=== PATIENT | female | born 2000 | race Hispanic/Latino ===

== ENCOUNTER 2021-02-25 04:30 | Emergency (ER) | payer OTHER ==
[2021-02-25 05:23] LABS: BASOPHILS % (AUTO) 0.4 % (0.0-5.0); EOSINOPHILS % (AUTO) 1.2 % (0.0-8.0); HEMATOCRIT 42.3 % (36-48); LYMPHOCYTES % (AUTO) 22.3 % (21.0-51.0); MEAN CORPUSCULAR HEMOGLOBIN 24.1 pg (27.0-33.0); MEAN CORPUSCULAR HGB CONC 31.7 g/dL (32.0-36.0); MEAN CORPUSCULAR VOLUME 75.9 fL (80-100); MONOCYTES % (AUTO) 5.6 % (3.0-13.0); NEUTROPHILS % (AUTO) 69.8 % (40.0-77.0); PLATELET COUNT (AUTO) 466 K/uL (130-400); RED BLOOD CELL COUNT(AUTO) 5.57 MIL/uL (4.00-5.50); WHITE BLOOD COUNT (AUTO) 20.3 K/uL (4.8-10.8)
[2021-02-25 05:25] LABS: BILIRUBIN,URINE Negative (NEGATIVE); COLOR,URINE Orange (YELLOW); GLUCOSE, URINE (UA) >=1000 mg/dL (NEGATIVE); KETONES,URINE Trace mg/dL (NEGATIVE); LEUKOCYTE ESTERASE ,URINE Negative (NEGATIVE); NITRATE,URINE Negative (NEGATIVE); OCCULT BLOOD,URINE Large (NEGATIVE); PROTEIN,URINE Negative (NEGATIVE); UROBILINOGEN,URINE 0.2 mg/dL (0.2-1.0)
[2021-02-25 05:26] LABS: APPEARANCE,URINE CLOUDY (CLEAR)
[2021-02-25 05:27] LABS: HCG,QUAL RESULT NEGATIVE (NEGATIVE)
[2021-02-25 05:34] LABS: BACTERIA,URINE None Seen /HPF (None Seen); RBC,URINE TNTC /HPF (0-1)
== END 2021-02-25 05:48 | disposition home or self-care (01) ==
LOC: EDH 04:30
DX: N93.9 Abnormal uterine and vaginal bleeding, unspecified (principal); E11.9 Type 2 diabetes mellitus without complications; Z90.49 Acquired absence of other specified parts of digestive tract; Z79.899 Other long term (current) drug therapy
CPT/HCPCS: 36415; 81001; 81025; 84702; 85025; 86850; 86900; 86901

== ENCOUNTER → 2021-04-04 | Outpatient (CLI) | payer OTHER ==
[2021-04-04 11:52] LABS: ABG BASE EXCESS -1.1 mmol/L (-2.0-3.0); ABG HCO3 24.3 mmol/L (21.0-28.0); ABG OXYGEN SATURATION 96.3 % (95.0-99.0); ABG PCO2 43 mmHg (32-45)
[2021-04-04 11:53] LABS: BASOPHILS % (AUTO) 0.7 % (0.0-5.0); EOSINOPHILS % (AUTO) 1.2 % (0.0-8.0); HEMATOCRIT 47.8 % (36-48); LYMPHOCYTES % (AUTO) 32.9 % (21.0-51.0); MEAN CORPUSCULAR HEMOGLOBIN 23.6 pg (27.0-33.0); MEAN CORPUSCULAR VOLUME 76.2 fL (80-100); NEUTROPHILS % (AUTO) 60.2 % (40.0-77.0); PLATELET COUNT (AUTO) 459 K/uL (130-400); RED BLOOD CELL COUNT(AUTO) 6.27 MIL/uL (4.00-5.50); RED CELL DISTRIBUTION WIDTH 16.6 % (11.0-15.5); WHITE BLOOD COUNT (AUTO) 17.6 K/uL (4.8-10.8)
[2021-04-04 12:09] LABS: % IRON SATURATION 7.1 % (22-44)
== END | disposition home or self-care (01) ==
LOC: LAB 10:12
PROVIDERS: ATTEND Internal Medicine Hematology & Oncology
DX: D45 Polycythemia vera (principal)
CPT/HCPCS: 36415; 71046; 81206; 82668; 82728; 82803; 83540; 83550; 85025

== ENCOUNTER → 2021-06-06 | Outpatient (CLI) | payer OTHER ==
[2021-06-06 11:19] LABS: BASOPHILS % (AUTO) 0.5 % (0.0-5.0); EOSINOPHILS % (AUTO) 1.3 % (0.0-8.0); HEMATOCRIT 44.8 % (36-48); LYMPHOCYTES % (AUTO) 29.6 % (21.0-51.0); MEAN CORPUSCULAR HEMOGLOBIN 25.3 pg (27.0-33.0); MEAN CORPUSCULAR HGB CONC 31.5 g/dL (32.0-36.0); MEAN CORPUSCULAR VOLUME 80.4 fL (80-100); MONOCYTES % (AUTO) 4.4 % (3.0-13.0); NEUTROPHILS % (AUTO) 63.7 % (40.0-77.0); PLATELET COUNT (AUTO) 346 K/uL (130-400); RED BLOOD CELL COUNT(AUTO) 5.57 MIL/uL (4.00-5.50); RED CELL DISTRIBUTION WIDTH 18.7 % (11.0-15.5); WHITE BLOOD COUNT (AUTO) 12.9 K/uL (4.8-10.8)
[2021-06-06 11:30] LABS: ALBUMIN 3.3 g/dL (3.5-5.0); BILIRUBIN,TOTAL 0.2 mg/dL (0.2-1.0); CREATININE 0.7 mg/dL (0.5-1.5); TOTAL PROTEIN, SERUM 7.9 g/dL (6.0-8.3)
== END | disposition home or self-care (01) ==
LOC: LAB 10:06
PROVIDERS: ATTEND Internal Medicine Hematology & Oncology
DX: D50.0 Iron deficiency anemia secondary to blood loss (chronic) (principal)
CPT/HCPCS: 36415; 80053; 83540; 85025

== ENCOUNTER 2021-08-18 17:15 | Emergency (ER) | payer OTHER ==
[~2021-08-18] VITALS: Ht 152.4 cm; Wt 109.8 kg
[2021-08-18 17:39] LABS: BASOPHILS % (AUTO) 0.6 % (0.0-5.0); EOSINOPHILS % (AUTO) 1.6 % (0.0-8.0); HEMATOCRIT 44.3 % (36-48); LYMPHOCYTES % (AUTO) 25.1 % (21.0-51.0); MEAN CORPUSCULAR HEMOGLOBIN 26.6 pg (27.0-33.0); MEAN CORPUSCULAR HGB CONC 32.1 g/dL (32.0-36.0); MEAN CORPUSCULAR VOLUME 83.1 fL (80-100); MONOCYTES % (AUTO) 5.8 % (3.0-13.0); NEUTROPHILS % (AUTO) 66.1 % (40.0-77.0); PLATELET COUNT (AUTO) 346 K/uL (130-400); RED BLOOD CELL COUNT(AUTO) 5.33 MIL/uL (4.00-5.50); RED CELL DISTRIBUTION WIDTH 13.1 % (11.0-15.5); WHITE BLOOD COUNT (AUTO) 15.4 K/uL (4.8-10.8)
[2021-08-18 17:51] LABS: CREATININE 0.5 mg/dL (0.5-1.5); POTASSIUM 3.9 mmol/L (3.5-5.1)
[2021-08-18 17:56] LABS: ALBUMIN 3.5 g/dL (3.5-5.0); BILIRUBIN,TOTAL 0.2 mg/dL (0.2-1.0); TOTAL PROTEIN, SERUM 8.2 g/dL (6.0-8.3)
[2021-08-18 18:11] LABS: B-TYPE NATRIURETIC PEPTIDE 6 pg/mL (0-100)
[2021-08-18] MEDS ORDERED: CEFTRIAXONE 1G VIAL ONE (21:17)
[2021-08-18] MEDS ORDERED: CEFU500T67 PO (21:18)
[2021-08-18 21:33] VITALS: BP 134/69
[2021-08-18 21:41] LABS: CRP QUANTITATIVE 33.6 mg/L (0.00-9.0); MAGNESIUM 2.3 mg/dL (1.80-2.40)
== END 2021-08-18 21:35 | disposition home or self-care (01) ==
LOC: EDH 17:15
DX: N39.0 Urinary tract infection, site not specified (principal); R07.89 Other chest pain; R19.7 Diarrhea, unspecified; E11.9 Type 2 diabetes mellitus without complications; M19.90 Unspecified osteoarthritis, unspecified site; E66.01 Morbid (severe) obesity due to excess calories; Z79.4 Long term (current) use of insulin; Z90.49 Acquired absence of other specified parts of digestive tract; Z68.42 Body mass index [BMI] 45.0-49.9, adult
CPT/HCPCS: 36415; 71045; 80053; 82550; 83690; 83735; 83880; 84484; 85025; 86140; 87040 ×2; 93005; 96374; 99285; J0696

== ENCOUNTER 2021-09-07 19:22 | Emergency (ER) | payer OTHER ==
[~2021-09-07] VITALS: Ht 152.4 cm; Wt 108.9 kg
[~2021-09-07 19:22] MED LIST: CEFU500T67 PO
[2021-09-07] MEDS ORDERED: KETOROLAC 30MG VIAL (30MG/ML) IM SCH (20:00)
[2021-09-07 20:29] LABS: BASOPHILS % (AUTO) 0.6 % (0.0-5.0); EOSINOPHILS % (AUTO) 0.4 % (0.0-8.0); HEMATOCRIT 43.9 % (36-48); LYMPHOCYTES % (AUTO) 22.1 % (21.0-51.0); MEAN CORPUSCULAR HEMOGLOBIN 26.9 pg (27.0-33.0); MEAN CORPUSCULAR HGB CONC 33.3 g/dL (32.0-36.0); MONOCYTES % (AUTO) 5.3 % (3.0-13.0); NEUTROPHILS % (AUTO) 71.1 % (40.0-77.0); PLATELET COUNT (AUTO) 394 K/uL (130-400); RED BLOOD CELL COUNT(AUTO) 5.42 MIL/uL (4.00-5.50); RED CELL DISTRIBUTION WIDTH 12.6 % (11.0-15.5)
[2021-09-07] MEDS ORDERED: ZOSYN 3.375GM+NS 50ML 50 ML IV SCH (20:34)
[2021-09-07 20:36] LABS: CREATININE 0.6 mg/dL (0.5-1.5)
[2021-09-07 20:40] LABS: ALBUMIN 3.8 g/dL (3.5-5.0); BILIRUBIN,TOTAL 0.4 mg/dL (0.2-1.0); TOTAL PROTEIN, SERUM 8.9 g/dL (6.0-8.3)
[2021-09-07] MEDS ORDERED: 0.9%NACL 1000ML 1,365 ML IV SCH (21:00)
[2021-09-07] MEDS ORDERED: LORAZEPAM 2 MG/ML 1 ML VIAL IVP SCH (21:00)
[2021-09-07] MEDS ORDERED: TETANUS/DIPHTHERIA TOXOID [ADULT] 0.5 ML VIAL IM SCH (21:00)
[2021-09-07] MEDS ORDERED: ACETAMINOPHEN 500 MG TABLET PO SCH (21:00)
[2021-09-07 21:49] LABS: APPEARANCE,URINE Clear (CLEAR); BILIRUBIN,URINE Negative (NEGATIVE); COLOR,URINE Yellow (YELLOW); GLUCOSE, URINE (UA) >=1000 mg/dL (NEGATIVE); KETONES,URINE >=160 mg/dL (NEGATIVE); LEUKOCYTE ESTERASE ,URINE Negative (NEGATIVE); NITRATE,URINE Negative (NEGATIVE); OCCULT BLOOD,URINE Negative (NEGATIVE); PROTEIN,URINE Trace mg/dL (NEGATIVE)
[2021-09-07 21:51] LABS: HCG,QUAL RESULT NEGATIVE (NEGATIVE)
[2021-09-07 21:55] LABS: BACTERIA,URINE Few /HPF (None Seen); RBC,URINE 0-1 /HPF (0-1)
[2021-09-07 21:56] LABS: MUCUS,URINE Rare LPF (None Seen); SQUAMOUS EPITHELIAL CELL,UR Moderate /HPF (0-2)
[2021-09-07 21:57] LABS: AMPHET/METH SCREEN,URINE POSITIVE (NEGATIVE); BARBITURATE SCREEN, URINE NEGATIVE (NEGATIVE); BENZODIAZEPINES SCREEN,URINE NEGATIVE (NEGATIVE); CANNABINOID SCREEN,URINE NEGATIVE (NEGATIVE); COCAINE SCREEN,URINE NEGATIVE (NEGATIVE); OPIATE SCREEN,URINE NEGATIVE (NEGATIVE); PHENCYCLIDINE SCREEN,URINE NEGATIVE (NEGATIVE)
[2021-09-07] MEDS ORDERED: CEPH500B PO (23:19)
[2021-09-07] MEDS ORDERED: IBUP-2070 PO (23:19)
[2021-09-07] MEDS ORDERED: CYCL5TAB PO (23:19)
[2021-09-07] MEDS ORDERED: ACET-3194 PO (23:19)
[2021-09-07 23:59] VITALS: BP 111/66
[2021-09-09 08:14] LABS: HEPATITIS Bs ANTIGEN SCREEN P Negative (Negative)
== END 2021-09-08 00:11 | disposition home or self-care (01) ==
LOC: EDH 19:22
DX: S61.031A Puncture wound without foreign body of right thumb without damage to nail, initial encounter (principal); E86.0 Dehydration; D72.829 Elevated white blood cell count, unspecified; Z77.21 Contact with and (suspected) exposure to potentially hazardous body fluids; R50.9 Fever, unspecified; M79.10 Myalgia, unspecified site; Z20.822 Contact with and (suspected) exposure to COVID-19; E11.9 Type 2 diabetes mellitus without complications; M19.90 Unspecified osteoarthritis, unspecified site; Z79.1 Long term (current) use of non-steroidal anti-inflammatories (NSAID); Z79.899 Other long term (current) drug therapy; Z90.49 Acquired absence of other specified parts of digestive tract; X58.XXXA Exposure to other specified factors, initial encounter; Y93.89 Activity, other specified; Y92.89 Other specified places as the place of occurrence of the external cause; Y99.8 Other external cause status
CPT/HCPCS: 36415; 71045; 80053; 80305; 81001; 81025; 82550; 83605; 84145; 84484; 85025; 86701; 86704; 86706; 86804; 87040 ×2; 87088; 87340; 87390; 87522; 87635; 87804 ×2; 87880; 90471; 90714; 96365; 96372; 96375; 99284; C9803; J1885; J2060; J2543

== ENCOUNTER 2021-09-09 19:42 | Observation (INO) | payer BC, OTHER ==
[~2021-09-09] VITALS: Ht 152.4 cm; Wt 108.2 kg
[~2021-09-09 19:42] MED LIST changes: +ACET-3194 PO; +CEPH500B PO; +CYCL5TAB PO; +IBUP-2070 PO
[2021-09-09 20:22] LABS: APPEARANCE,URINE Cloudy (CLEAR); BILIRUBIN,URINE Negative (NEGATIVE); COLOR,URINE Yellow (YELLOW); GLUCOSE, URINE (UA) >=1000 mg/dL (NEGATIVE); KETONES,URINE Negative (NEGATIVE); LEUKOCYTE ESTERASE ,URINE Negative (NEGATIVE); NITRATE,URINE Negative (NEGATIVE); OCCULT BLOOD,URINE Negative (NEGATIVE); PROTEIN,URINE Negative (NEGATIVE); UROBILINOGEN,URINE 0.2 mg/dL (0.2-1.0)
[2021-09-09 20:29] LABS: BACTERIA,URINE Rare /HPF (None Seen); MUCUS,URINE Few LPF (None Seen); SQUAMOUS EPITHELIAL CELL,UR Few /HPF (0-2); YEAST,URINE BUDDING Moderate /HPF (None Seen)
[2021-09-09 20:30] LABS: AMPHET/METH SCREEN,URINE NEGATIVE (NEGATIVE); BARBITURATE SCREEN, URINE NEGATIVE (NEGATIVE); BENZODIAZEPINES SCREEN,URINE NEGATIVE (NEGATIVE); CANNABINOID SCREEN,URINE NEGATIVE (NEGATIVE); COCAINE SCREEN,URINE NEGATIVE (NEGATIVE); OPIATE SCREEN,URINE POSITIVE (NEGATIVE); PHENCYCLIDINE SCREEN,URINE NEGATIVE (NEGATIVE)
[2021-09-09] MEDS ORDERED: 0.9%NACL 1000ML 1,000 ML IV ONE (20:30)
[2021-09-09] MEDS ORDERED: LORAZEPAM 2 MG/ML 1 ML VIAL IVP ONE (20:30)
[2021-09-09] MEDS ORDERED: KETOROLAC 30MG VIAL (30MG/ML) IV ONE (20:30)
[2021-09-09 20:38] LABS: HCG,QUAL RESULT NEGATIVE (NEGATIVE)
[2021-09-09] MEDS ORDERED: KETOROLAC 30MG VIAL (30MG/ML) ONE (20:42)
[2021-09-09] MEDS ORDERED: LORAZEPAM 2 MG/ML 1 ML VIAL ONE (20:42)
[2021-09-09 20:54] LABS: BASOPHILS % (AUTO) 0.4 % (0.0-5.0); EOSINOPHILS % (AUTO) 0.4 % (0.0-8.0); HEMATOCRIT 38.2 % (36-48); LYMPHOCYTES % (AUTO) 26.1 % (21.0-51.0); MEAN CORPUSCULAR HEMOGLOBIN 27.2 pg (27.0-33.0); MEAN CORPUSCULAR HGB CONC 32.5 g/dL (32.0-36.0); MEAN CORPUSCULAR VOLUME 83.8 fL (80-100); MONOCYTES % (AUTO) 5.2 % (3.0-13.0); NEUTROPHILS % (AUTO) 67.3 % (40.0-77.0); PLATELET COUNT (AUTO) 331 K/uL (130-400); RED BLOOD CELL COUNT(AUTO) 4.56 MIL/uL (4.00-5.50); RED CELL DISTRIBUTION WIDTH 12.9 % (11.0-15.5); WHITE BLOOD COUNT (AUTO) 18.4 K/uL (4.8-10.8)
[2021-09-09 21:11] LABS: CREATININE 0.6 mg/dL (0.5-1.5); POTASSIUM 4.2 mmol/L (3.5-5.1)
[2021-09-09 21:16] LABS: ALBUMIN 2.9 g/dL (3.5-5.0); BILIRUBIN,TOTAL 0.3 mg/dL (0.2-1.0); CRP QUANTITATIVE 125.9 mg/L (0.00-9.0); TOTAL PROTEIN, SERUM 7.9 g/dL (6.0-8.3)
[2021-09-09] MEDS: ZOSYN 3.375GM +NS 50ML IV SCH (23:09)
[2021-09-09] MEDS: DOXYCYCLINE HYCLATE 100 MG TABLET PO SCH (23:09)
[2021-09-09] MEDS: LACTATED RINGERS 1000ML 1,000 ML IV SCH (23:09)
[2021-09-10] MEDS ORDERED: HYDROMORPHONE 0.5 MG SYG (0.5MG/0.5ML) ONE (01:12)
[2021-09-10] MEDS ORDERED: HYDROMORPHONE 0.5 MG SYG (0.5MG/0.5ML) IVP ONE (01:30)
[2021-09-10] MEDS: ACETAMINOPHEN 325 MG TAB PO PRN ×4 (04:53→13:08)
[2021-09-10] MEDS: ZOSYN 3.375GM +NS 50ML IV SCH ×3 (05:03→21:49)
[2021-09-10 08:08] LABS: BASOPHILS % (AUTO) 0.4 % (0.0-5.0); EOSINOPHILS % (AUTO) 0.5 % (0.0-8.0); LYMPHOCYTES % (AUTO) 24.6 % (21.0-51.0); MEAN CORPUSCULAR HEMOGLOBIN 26.9 pg (27.0-33.0); MEAN CORPUSCULAR HGB CONC 32.2 g/dL (32.0-36.0); MEAN CORPUSCULAR VOLUME 83.5 fL (80-100); MONOCYTES % (AUTO) 6.1 % (3.0-13.0); NEUTROPHILS % (AUTO) 67.9 % (40.0-77.0); PLATELET COUNT (AUTO) 306 K/uL (130-400); RED BLOOD CELL COUNT(AUTO) 4.31 MIL/uL (4.00-5.50); RED CELL DISTRIBUTION WIDTH 12.6 % (11.0-15.5); WHITE BLOOD COUNT (AUTO) 13.9 K/uL (4.8-10.8)
[2021-09-10 08:38] LABS: ALBUMIN 2.6 g/dL (3.5-5.0); BILIRUBIN,DIRECT 0.1 mg/dL (0.0-0.3); BILIRUBIN,TOTAL 0.4 mg/dL (0.2-1.0); CREATININE 0.5 mg/dL (0.5-1.5); POTASSIUM 3.9 mmol/L (3.5-5.1); TOTAL PROTEIN, SERUM 6.9 g/dL (6.0-8.3)
[2021-09-10] MEDS: LACTATED RINGERS 1000ML 1,000 ML IV SCH ×2 (09:05→12:01)
[2021-09-10] MEDS: DOXYCYCLINE HYCLATE 100 MG TABLET PO SCH ×2 (09:06→21:49)
[2021-09-10] MEDS: TRAMADOL HCL 50 MG TABLET PO PRN (12:51)
[2021-09-10] MEDS ORDERED: ERTU1TAB9 PO (14:29)
[2021-09-10] MEDS ORDERED: LAMO150T PO (14:29)
[2021-09-10] MEDS ORDERED: INSU10VI3 SQ (14:29)
[2021-09-10] MEDS ORDERED: CITA20TA17 PO (14:29)
[2021-09-10 16:00] VITALS: BP 135/69
[2021-09-10 20:10] VITALS: BP 130/77
[2021-09-10] MEDS: ACETAMINOPHEN WITH CODEINE 1 TAB TAB PO PRN (21:49)
[2021-09-10 23:41] VITALS: BP 144/76
[2021-09-11] MEDS: ACETAMINOPHEN WITH CODEINE 1 TAB TAB PO PRN ×2 (01:04→21:16)
[2021-09-11 03:37] VITALS: BP 120/61
[2021-09-11] MEDS: LACTATED RINGERS 1000ML 1,000 ML IV SCH (04:49)
[2021-09-11 05:36] LABS: HEMATOCRIT 36.4 % (36-48); MEAN CORPUSCULAR HEMOGLOBIN 26.8 pg (27.0-33.0); MEAN CORPUSCULAR HGB CONC 32.1 g/dL (32.0-36.0); MEAN CORPUSCULAR VOLUME 83.5 fL (80-100); RED BLOOD CELL COUNT(AUTO) 4.36 MIL/uL (4.00-5.50); RED CELL DISTRIBUTION WIDTH 12.5 % (11.0-15.5); WHITE BLOOD COUNT (AUTO) 10.6 K/uL (4.8-10.8)
[2021-09-11] MEDS: ZOSYN 3.375GM +NS 50ML IV SCH ×3 (05:45→21:12)
[2021-09-11 05:49] LABS: CREATININE 0.5 mg/dL (0.5-1.5); POTASSIUM 3.7 mmol/L (3.5-5.1)
[2021-09-11] MEDS: TRAMADOL HCL 50 MG TABLET PO PRN ×3 (05:57→21:38)
[2021-09-11] MEDS: DOXYCYCLINE HYCLATE 100 MG TABLET PO SCH ×2 (08:24→21:13)
[2021-09-11 09:05] VITALS: BP 124/84
[2021-09-11 11:52] VITALS: BP 134/83
[2021-09-11 17:18] VITALS: BP 131/81
[2021-09-11 20:18] VITALS: BP 101/68
[2021-09-11] MEDS ORDERED: INSULIN GLARGINE 100 UNITS/ML 10 ML VIAL SQ SCH (21:00)
[2021-09-11] MEDS ORDERED: METFORMIN PO SCH (21:00)
[2021-09-11] MEDS: INSULIN HUMULIN R 100 UNIT/ML 3ML SQ SCH (21:00)
[2021-09-11] MEDS ORDERED: ERTUGLIFLOZIN PO SCH (21:00)
[2021-09-11] MEDS: INSULIN HUMULIN 70/30 100 UNIT/ML 3ML SQ SCH (21:16)
[2021-09-12] MEDS: LACTATED RINGERS 1000ML 1,000 ML IV SCH (01:05)
[2021-09-12 03:57] VITALS: BP 123/73
[2021-09-12] MEDS: ZOSYN 3.375GM +NS 50ML IV SCH (06:49)
[2021-09-12] MEDS: INSULIN HUMULIN R 100 UNIT/ML 3ML SQ SCH ×2 (07:07→11:29)
[2021-09-12 08:11] VITALS: BP 129/79
[2021-09-12] MEDS: DOXYCYCLINE HYCLATE 100 MG TABLET PO SCH (08:55)
[2021-09-12] MEDS ORDERED: CITALOPRAM 20 MG TABLET PO SCH (09:00)
[2021-09-12] MEDS: INSULIN HUMULIN 70/30 100 UNIT/ML 3ML SQ SCH (09:00)
[2021-09-12] MEDS ORDERED: LAMOTRIGINE 100 MG TABLET PO SCH (09:00)
[2021-09-12 11:11] VITALS: BP 122/65
[2021-09-13 04:10] LABS: HEPATITIS A ANTIBODY IGM Negative (Negative); HEPATITIS B CORE IGM Negative (Negative); HEPATITIS Bs ANTIGEN SCREEN P Negative (Negative)
== END 2021-09-12 11:51 | disposition home or self-care (01) ==
LOC: EDH 19:42 → OBSVTOIN 22:13 → INTOOBSV 22:13 → EDHIP 22:13 → 3BH 09-10 16:20
PROVIDERS: ADMIT Family Medicine; ATTEND Family Medicine
DX: R50.9 Fever, unspecified (principal); Z20.822 Contact with and (suspected) exposure to COVID-19; E87.6 Hypokalemia; D72.829 Elevated white blood cell count, unspecified; L40.50 Arthropathic psoriasis, unspecified; E11.9 Type 2 diabetes mellitus without complications; D45 Polycythemia vera; E66.01 Morbid (severe) obesity due to excess calories; Z68.42 Body mass index [BMI] 45.0-49.9, adult; Z79.899 Other long term (current) drug therapy
CPT/HCPCS: 36415 ×3; 80048 ×2; 80053; 80074; 80076; 80305; 81001; 81025; 82948 ×7; 83605; 83735; 84145; 85025 ×2; 85027; 86140; 86757; 87040 ×2; 87088; 87635; 87804 ×2; 96361 ×4; 96365; 96366 ×5; 96372 ×2; 96375; 99283; C9803; G0378 ×62; J1170; J1815 ×3; J1885; J2060; J2543 ×8; J7120 ×2

== ENCOUNTER → 2022-03-06 | Outpatient (CLI) | payer OTHER ==
[~2022-03-06] MED LIST changes: -ACET-3194 PO; -CEFU500T67 PO; -CEPH500B PO; +CITA20TA17 PO; -CYCL5TAB PO; +ERTU1TAB9 PO; -IBUP-2070 PO; +INSU10VI3 SQ; +LAMO150T PO
== END | disposition home or self-care (01) ==
LOC: DTH 09:19
PROVIDERS: ATTEND Surgery
DX: Z71.3 Dietary counseling and surveillance (principal); M19.91 Primary osteoarthritis, unspecified site; E11.9 Type 2 diabetes mellitus without complications; K76.0 Fatty (change of) liver, not elsewhere classified; G47.33 Obstructive sleep apnea (adult) (pediatric)
CPT/HCPCS: 97803

== ENCOUNTER 2022-03-23 14:48 | Emergency (ER) | payer BC, OTHER ==
[~2022-03-23] VITALS: Ht 152.4 cm; Wt 111.1 kg
[2022-03-23 14:54] VITALS: BP 118/65
[2022-03-23 15:37] LABS: BASOPHILS % (AUTO) 0.7 % (0.0-5.0); HEMATOCRIT 44.2 % (36-48); LYMPHOCYTES % (AUTO) 23.1 % (21.0-51.0); MEAN CORPUSCULAR HEMOGLOBIN 24.7 pg (27.0-33.0); MEAN CORPUSCULAR HGB CONC 32.1 g/dL (32.0-36.0); NEUTROPHILS % (AUTO) 68.4 % (40.0-77.0); PLATELET COUNT (AUTO) 380 K/uL (130-400); RED BLOOD CELL COUNT(AUTO) 5.74 MIL/uL (4.00-5.50); RED CELL DISTRIBUTION WIDTH 14.5 % (11.0-15.5); WHITE BLOOD COUNT (AUTO) 15.4 K/uL (4.8-10.8)
[2022-03-23 15:38] LABS: APPEARANCE,URINE Clear (CLEAR); BILIRUBIN,URINE Negative (NEGATIVE); COLOR,URINE Yellow (YELLOW); GLUCOSE, URINE (UA) >=1000 mg/dL (NEGATIVE); KETONES,URINE Trace mg/dL (NEGATIVE); LEUKOCYTE ESTERASE ,URINE Negative (NEGATIVE); NITRATE,URINE Negative (NEGATIVE); OCCULT BLOOD,URINE Moderate (NEGATIVE); PROTEIN,URINE Negative (NEGATIVE); UROBILINOGEN,URINE 0.2 mg/dL (0.2-1.0)
[2022-03-23 15:41] LABS: HCG,QUAL RESULT NEGATIVE (NEGATIVE)
[2022-03-23 15:46] LABS: CREATININE 0.6 mg/dL (0.5-1.5)
[2022-03-23 15:52] LABS: ALBUMIN 3.4 g/dL (3.5-5.0); BILIRUBIN,TOTAL 0.3 mg/dL (0.2-1.0)
[2022-03-23 15:57] LABS: BACTERIA,URINE Few /HPF (None Seen); MUCUS,URINE Rare LPF (None Seen); SQUAMOUS EPITHELIAL CELL,UR Many /HPF (0-2); WBC,URINE 0-1 /HPF (0-1); YEAST,URINE BUDDING Few /HPF (None Seen)
[2022-03-23] MEDS ORDERED: 0.9%NACL 1000ML 1,000 ML IV SCH (16:30)
[2022-03-23] MEDS ORDERED: FLUCONAZOLE 100 MG TAB PO ONE (16:30)
[2022-03-23] MEDS ORDERED: FLUC150T PO (18:05)
== END 2022-03-23 18:25 | disposition home or self-care (01) ==
LOC: EDH 14:48
DX: B37.9 Candidiasis, unspecified (principal); B34.9 Viral infection, unspecified; E11.9 Type 2 diabetes mellitus without complications; E66.9 Obesity, unspecified; Z68.42 Body mass index [BMI] 45.0-49.9, adult; Z20.822 Contact with and (suspected) exposure to COVID-19; Z79.899 Other long term (current) drug therapy; Z79.84 Long term (current) use of oral hypoglycemic drugs; Z90.89 Acquired absence of other organs; Z90.49 Acquired absence of other specified parts of digestive tract; Z98.890 Other specified postprocedural states
CPT/HCPCS: 36415; 80053; 81001; 81025; 83605; 83690; 85025; 87635; 87804 ×2; 96360; 99283; C9803; J7030

== ENCOUNTER 2022-06-24 02:56 | Emergency (ER) | payer BC ==
[~2022-06-24] VITALS: Ht 152.4 cm; Wt 97.5 kg
[~2022-06-24 02:56] MED LIST changes: +FLUC150T PO
[2022-06-24 03:49] LABS: BASOPHILS % (AUTO) 0.6 % (0.0-5.0); HEMATOCRIT 44.6 % (36-48); LYMPHOCYTES % (AUTO) 31.9 % (21.0-51.0); MEAN CORPUSCULAR HEMOGLOBIN 25.1 pg (27.0-33.0); MEAN CORPUSCULAR HGB CONC 32.7 g/dL (32.0-36.0); MEAN CORPUSCULAR VOLUME 76.8 fL (80-100); MONOCYTES % (AUTO) 5.1 % (3.0-13.0); NEUTROPHILS % (AUTO) 60.7 % (40.0-77.0); PLATELET COUNT (AUTO) 432 K/uL (130-400); RED BLOOD CELL COUNT(AUTO) 5.81 MIL/uL (4.00-5.50); WHITE BLOOD COUNT (AUTO) 14.4 K/uL (4.8-10.8)
[2022-06-24 04:08] LABS: CREATININE 0.6 mg/dL (0.5-1.5); POTASSIUM 3.6 mmol/L (3.5-5.1)
[2022-06-24 04:12] LABS: ALBUMIN 3.3 g/dL (3.5-5.0); TOTAL PROTEIN, SERUM 8.3 g/dL (6.0-8.3)
[2022-06-24 04:41] LABS: APPEARANCE,URINE TURBID (CLEAR); BILIRUBIN,URINE MODERATE (NEGATIVE); COLOR,URINE AMBER (YELLOW); GLUCOSE, URINE (UA) NEGATIVE (NEGATIVE); KETONES,URINE 15 mg/dL (NEGATIVE); LEUKOCYTE ESTERASE ,URINE TRACE (NEGATIVE); NITRATE,URINE NEGATIVE (NEGATIVE); OCCULT BLOOD,URINE LARGE (NEGATIVE); PH,URINE 5.5 (5.0-8.0); PROTEIN,URINE 30 mg/dL (NEGATIVE)
[2022-06-24 04:48] LABS: RBC,URINE TNTC /HPF (0-1)
[2022-06-24 04:52] LABS: BACTERIA,URINE Rare /HPF (None Seen); SQUAMOUS EPITHELIAL CELL,UR Few /HPF (0-2)
[2022-06-24 04:53] LABS: MUCUS,URINE Rare LPF (None Seen)
[2022-06-24] MEDS ORDERED: LACTATED RINGERS 1000ML 1,000 ML IV ONE (05:30)
[2022-06-24] MEDS ORDERED: PROMETHAZINE TP (06:50)
[2022-06-24 07:00] VITALS: BP 110/78
== END 2022-06-24 07:20 | disposition home or self-care (01) ==
LOC: EDH 02:56
DX: N93.8 Other specified abnormal uterine and vaginal bleeding (principal); E86.0 Dehydration; E11.9 Type 2 diabetes mellitus without complications; E66.01 Morbid (severe) obesity due to excess calories; Z68.41 Body mass index [BMI] 40.0-44.9, adult; Z79.4 Long term (current) use of insulin; Z79.899 Other long term (current) drug therapy
CPT/HCPCS: 99283; 96360; 80053; 83690; 85025; 87077; 87088; 87186; 81001; 81025; 36415; J7120

== ENCOUNTER 2023-03-18 10:56 | Emergency (ER) | payer BC ==
[~2023-03-18] VITALS: Ht 152.4 cm; Wt 81.6 kg
[~2023-03-18 10:56] MED LIST changes: +PROMETHAZINE TP
[2023-03-18] MEDS ORDERED: ONDANSETRON 4MG INJ IVP ONE (12:30)
[2023-03-18 12:34] LABS: BASOPHILS % (AUTO) 0.6 % (0.0-5.0); EOSINOPHILS % (AUTO) 0.8 % (0.0-8.0); HEMATOCRIT 40.8 % (36-48); LYMPHOCYTES % (AUTO) 28.5 % (21.0-51.0); MEAN CORPUSCULAR HEMOGLOBIN 24.9 pg (27.0-33.0); MEAN CORPUSCULAR HGB CONC 32.1 g/dL (32.0-36.0); MEAN CORPUSCULAR VOLUME 77.6 fL (80-100); MONOCYTES % (AUTO) 3.5 % (3.0-13.0); NEUTROPHILS % (AUTO) 66.2 % (40.0-77.0); PLATELET COUNT (AUTO) 315 K/uL (130-400); RED BLOOD CELL COUNT(AUTO) 5.26 MIL/uL (4.00-5.50); WHITE BLOOD COUNT (AUTO) 10.1 K/uL (4.8-10.8)
[2023-03-18 12:36] LABS: APPEARANCE,URINE CLOUDY (CLEAR); BILIRUBIN,URINE NEGATIVE (NEGATIVE); COLOR,URINE YELLOW (YELLOW); GLUCOSE, URINE (UA) 30 mg/dL (NEGATIVE); KETONES,URINE NEGATIVE (NEGATIVE); LEUKOCYTE ESTERASE ,URINE 25 Leu/uL (NEGATIVE); NITRATE,URINE NEGATIVE (NEGATIVE); PH,URINE 5.5 (5.0-8.0); PROTEIN,URINE 30 mg/dL (NEGATIVE); UROBILINOGEN,URINE 0.2 mg/dL (0.2-1.0)
[2023-03-18 12:37] LABS: HCG,QUALITATIVE URINE NEGATIVE (NEGATIVE)
[2023-03-18 12:42] LABS: BACTERIA,URINE FEW /HPF (None Seen); MUCUS,URINE MANY LPF (None Seen); SQUAMOUS EPITHELIAL CELL,UR MANY /HPF (0-2)
[2023-03-18 12:43] LABS: CREATININE 0.6 mg/dL (0.5-1.5); POTASSIUM 4.1 mmol/L (3.5-5.1)
[2023-03-18 12:47] LABS: ALBUMIN 3.9 g/dL (3.5-5.0); TOTAL PROTEIN, SERUM 8.1 g/dL (6.0-8.3)
[2023-03-18] MEDS ORDERED: 0.9%NACL 1000ML 1,000 ML IV ONE (13:00)
[2023-03-18] MEDS ORDERED: PROM25TA7 PO (15:30)
[2023-03-18] MEDS ORDERED: MACR100 PO (15:30)
[2023-03-18 15:36] VITALS: BP 125/68
== END 2023-03-18 15:45 | disposition home or self-care (01) ==
LOC: EDH 10:56
DX: N39.0 Urinary tract infection, site not specified (principal); E11.9 Type 2 diabetes mellitus without complications; E66.01 Morbid (severe) obesity due to excess calories; F32.A Depression, unspecified; Z79.4 Long term (current) use of insulin; Z79.84 Long term (current) use of oral hypoglycemic drugs; Z79.899 Other long term (current) drug therapy; Z90.49 Acquired absence of other specified parts of digestive tract; Z20.822 Contact with and (suspected) exposure to COVID-19
CPT/HCPCS: 99284; 80053; 83690; 85025; 87088; 87804 ×2; 81001; 81025; 36415; 87635; 74176; 96374; 96361; 99281; C9803; J7030; J2405

== ENCOUNTER 2023-03-18 19:14 | Emergency (ER) | payer BC ==
[~2023-03-18] VITALS: Ht 152.4 cm; Wt 87.5 kg
[~2023-03-18 19:14] MED LIST changes: +MACR100 PO; +PROM25TA7 PO
[2023-03-18 19:16] VITALS: BP 123/60
== END 2023-03-19 01:54 | disposition left against medical advice (07) ==
LOC: EDH 19:14
DX: R11.2 Nausea with vomiting, unspecified (principal); R10.9 Unspecified abdominal pain; Z53.21 Procedure and treatment not carried out due to patient leaving prior to being seen by health care provider
CPT/HCPCS: 99281